=== PATIENT | female | born 1990 | race Caucasian/White ===

== ENCOUNTER → 2017-12-02 | Emergency (ER) | payer OTHER ==
[~2017-12-02] VITALS: Ht 162.6 cm; Wt 48.5 kg
[~2017-12-02] MED LIST: CEFUROXIME500 MG PO; KETO10TA2 PO; URIN D.S. TABL1 EACH PO
== END | disposition home or self-care (01) ==
LOC: ER 19:07
DX: N12 Tubulo-interstitial nephritis, not specified as acute or chronic (principal)

== ENCOUNTER 2018-01-03 21:07 | Emergency (ER) | payer OTHER ==
[~2018-01-03] VITALS: Ht 162.6 cm; Wt 47.6 kg
== END 2018-01-03 23:02 | disposition home or self-care (01) ==
LOC: ER 21:07
DX: E16.1 Other hypoglycemia (principal); I95.9 Hypotension, unspecified

== ENCOUNTER 2019-01-25 02:31 | Emergency (ER) | payer OTHER ==
[~2019-01-25] VITALS: Ht 162.6 cm; Wt 50.8 kg
[2019-01-25] MEDS ORDERED: LEVAQUIN500 MG PO (05:20)
[2019-01-25] MEDS ORDERED: PYRIDIUM DS200 MG PO (05:20)
[2019-01-25] MEDS ORDERED: KETO10TA2 PO (05:26)
== END 2019-01-25 05:29 | disposition home or self-care (01) ==
LOC: ER 02:31
DX: N39.0 Urinary tract infection, site not specified (principal)